=== PATIENT | male | born 1950 ===

== ENCOUNTER 2018-01-18 07:50 | Day surgery (SDC) | payer MEDICARE ==
[2018-01-11 10:21] VITALS: BMI 31.9
[2018-01-18] MEDS ORDERED: Propofol 10 mg/ml Inj (20 ML) ONE ×2 (11:11→11:38)
[2018-01-18 12:37] VITALS: RESP 18; TEMP 97.8
[2018-01-18 12:42] VITALS: BP 104/70; PULSE 68; O2SAT 100
== END 2018-01-18 14:00 | disposition home or self-care (01) ==
LOC: C.ENDO 07:50
PROVIDERS: ATTEND Internal Medicine Gastroenterology
DX: D12.4 Benign neoplasm of descending colon (principal); K64.8 Other hemorrhoids; K62.1 Rectal polyp
CPT/HCPCS: 45380; 88305; J2001; J2704